=== PATIENT | male | born 1960 | race Caucasian/White ===

== ENCOUNTER 2019-10-16 18:13 | Emergency (ER) | payer BC, SELFPAY ==
--- NOTE | 2019-10-16 18:15 | ECG_ITS ---
Measurements Intervals [place] Rate: 102 P: 50 MT: 142 QRS: 56 QRSD: 100 T: 47 QT: 345 QTc: 449 SINUS TACHYCARDIA ABNORMAL RHYTHM ECG No previous ECG available for comparison Electronically Signed On 10-17-2019 12:58:39 CDT by Caryn Warner M.D. [email or web address]
[2019-10-16 18:26] VITALS: BP 153/100; PULSE 105; RESP 16; TEMP 36.7; O2SAT 94; BMI 34.6
--- NOTE | 2019-10-16 18:44 | ED_ITS ---
Entered by Sharon Griggs, acting as scribe for Erich Flood MD Oct 16, 2019 18:13 HPI - Chest Pain General: Chief Complaint: Chest Pain Stated Complaint: cp/sob Time Seen by Provider: 10/16/19 18:41 Source: patient and family Mode of arrival: ambulatory Limitations: no limitations History of Present Illness: HPI narrative: 59 yo male presents with chest pain and nausea. pt states this started 3 day ago. pt states he has been having sweating. pt has had shortness of breath. pt states he has had heart burn for the past few days. pt denies any other symptoms at this time. complaint: chest pain Onset (ago): day(s) ( 3 days) Timing of current episode: constant and still present Prior episodes: No Onset: during rest Pain location: substernal Pain radiation: none Severity: mild Quality: sharp Relieving factors: nothing Exacerbating factors: other (heart burn) Associated symptoms: Reports dyspnea and nausea; Deny fever(s) Treatment prior to arrival: none Review of Systems Const: Denies: fever, chills, body aches or change in appetite Eyes: Denies: blurry vision or eye discomfort ENMT: Denies: throat pain or dental pain Card: Reports: chest pain Resp: Reports: shortness of breath GI: Reports: nausea and heartburn/indigestion : Denies: painful urination Musc: Denies: neck pain or back pain Skin/Breast: Denies: rash Neuro: Denies: headache Psych: Denies: depression Noe/Lymph: Denies: easy bruising All/Imm: Denies: hives PFS ED PFSH: Social History (Updated 10/16/19 @ 17:13 by Sydney Gavin LPN) Smoking and tobacco status: former smoker Physical Exam Const: COMMON NORMALS: no apparent distress, oriented x3 and healthy appearing HENMT: COMMON NORMALS: normocephalic and head/scalp atraumatic HEAD & SCALP: normocephalic and atraumatic Eye: COMMON NORMALS: PERRL and EOMs intact bilaterally PUPIL: Yes PERRL Neck/C-Spine: COMMON NORMALS: full ROM and supple Resp: COMMON NORMALS: normal respiratory effort, no retractions, no use of accessory muscles and clear to auscultation bilaterally AUSCULTATION: clear to auscultation bilaterally Cardio: COMMON NORMALS: regular rate, regular rhythm and no murmurs RATE: regular rate RHYTHM: regular rhythm GI: COMMON NORMALS: normal to inspection, nondistended, normoactive bowel sounds, soft to palpation, non-tender and no masses PALPATION: Yes soft Extremity: COMMON NORMALS: normal to inspection and full ROM Neuro: COMMON NORMALS: oriented x3, moves all extremities and no focal motor deficits Psych: COMMON NORMALS: mental status grossly normal, thought process normal and cooperative THOUGHT PROCESS: normal thought process Skin: COMMON NORMALS: no rashes or lesions noted and no wounds GENERAL SKIN EXAM: no rashes or lesions noted Course Vital Signs: Vital signs: Vital Signs Temperature 98.2 F 10/16/19 19:44 Pulse Rate 96 10/16/19 19:44 Respiratory Rate 16 10/16/19 19:44 Blood Pressure 138/95 10/16/19 19:44 Pulse Oximetry 96 10/16/19 19:44 MDM - Chest Pain MDM Narrative: Medical decision making narrative: Patient presents here with chest pain that is atypical in nature. Patient's been pain-free here in initial and repeat troponin are normal and EKGs are normal as well. Patient's d-dimer is negative with no signs of pulmonary embolism. Patient is stable for discharge and is to return if worsening. Patient is to follow-up with primary care doctor. Lab Data: Labs: Lab Results 10/16/19 10/16/19 10/16/19 Range/Units 18:48 18:48 18:48 WBC 8.5 (4.0-10.0) 10^3/ uL RBC 5.38 H (4.1-5.3) 10^6/u L Hgb 15.2 (11.7-16.6) g/dL Hct 45.8 (42.0-52.0) % MCV 85.1 (80-94) fL MCH 28.3 (28.0-34.0) pg MCHC 33.2 (30.0-36.0) g/dL RDW 12.0 L (12.1-15.1) % Plt Count 309 (130-400) 10^3/c mm MPV 10.3 (7.4-10.4) fL Neut % (Auto) 66.6 % Lymph % (Auto) 23.8 % [place] % (Auto) 7.9 % Eos % (Auto) 0.9 % Baso % (Auto) 0.6 % Neut # (Auto) 5.7 (1.8-7.7) 10^3/u L Lymph # (Auto) 2.0 (0.8-4.8) 10^3/u L [place] # (Auto) 0.7 (0.2-0.9) 10^3/u L Eos # (Auto) 0.1 (0.0-0.8) 10^3/u L Baso # (Auto) 0.1 (0.0-0.1) 10^3/u L Nucleated RBC % (a uto) 0 % Nucleated RBCs # 0.0 /100WBC D-Dimer (0-0.59) ug/mIFE U Sodium 137 (136-145) mmol/L Potassium 4.4 (3.5-5.1) mmol/L Chloride 100 (98-107) mmol/L Carbon Dioxide 23 (22-29) mmol/L Anion Gap 18.4 (5-19) BUN 17 (6-20) mg/dL Creatinine 1.0 (0.7-1.2) mg/dL GFR Calculation 76.7 L (90-130) mL/min Glucose 272 H (65-115) mg/dL Calculated Osmolal ity 290 (285-295) mOsm/k g Calcium 10.2 (8.5-10.5) mg/dL Total Bilirubin 0.4 (0.15-1.2) mg/dL AST 19 (0-40) U/L ALT 42 H (0-41) U/L Alkaline Phosphata se 58 (40-130) IU/L Troponin T Baselin e 7 (0-15) ng/mL Troponin T 120 Min [place] (0-15) ng/mL Delta Troponin T (0-10) ABS# NT-Pro-B Natriuret Pep 9 (0-125) pg/mL Total Protein 7.2 (6.6-8.7) g/dL Albumin 4.4 (3.5-5.2) g/dL Globulin 2.8 (1.3-4.6) g/dL Lipase 27 (13-60) U/L 10/16/19 10/16/19 Range/Units 18:48 20:38 WBC (4.0-10.0) 10^3/ uL RBC (4.1-5.3) 10^6/u L Hgb (11.7-16.6) g/dL Hct (42.0-52.0) % MCV (80-94) fL MCH (28.0-34.0) pg MCHC (30.0-36.0) g/dL RDW (12.1-15.1) % Plt Count (130-400) 10^3/c mm MPV (7.4-10.4) fL Neut % (Auto) % Lymph % (Auto) % [place] % (Auto) % Eos % (Auto) % Baso % (Auto) % Neut # (Auto) (1.8-7.7) 10^3/u L Lymph # (Auto) (0.8-4.8) 10^3/u L [place] # (Auto) (0.2-0.9) 10^3/u L Eos # (Auto) (0.0-0.8) 10^3/u L Baso # (Auto) (0.0-0.1) 10^3/u L Nucleated RBC % (a uto) % Nucleated RBCs # /100WBC D-Dimer 0.22 (0-0.59) ug/mIFE U Sodium (136-145) mmol/L Potassium (3.5-5.1) mmol/L Chloride (98-107) mmol/L Carbon Dioxide (22-29) mmol/L Anion Gap (5-19) BUN (6-20) mg/dL Creatinine (0.7-1.2) mg/dL GFR Calculation (90-130) mL/min Glucose (65-115) mg/dL Calculated Osmolal ity (285-295) mOsm/k g Calcium (8.5-10.5) mg/dL Total Bilirubin (0.15-1.2) mg/dL AST (0-40) U/L ALT (0-41) U/L Alkaline Phosphata se (40-130) IU/L Troponin T Baselin e (0-15) ng/mL Troponin T 120 Min [place] 6.68 (0-15) ng/mL Delta Troponin T -0.32 L (0-10) ABS# NT-Pro-B Natriuret Pep (0-125) pg/mL Total Protein (6.6-8.7) g/dL Albumin (3.5-5.2) g/dL Globulin (1.3-4.6) g/dL Lipase (13-60) U/L Imaging Data^: CXR: Attestation: I personally reviewed and interpreted this imaging study as follows: My impression: no acute abnormality EKG Data^: EKG 1: Attestation: I personally reviewed and interpreted this EKG as follows: EKG interpretation date: 10/16/19 EKG interpretation time: 18:29 Interpretation: sinus tach hr [address] or t wave abnormalities qrs 88 qtc 380 EKG 2: Attestation: I personally reviewed and interpreted this EKG as follows: EKG interpretation date: 10/16/19 EKG interpretation time: 20:14 Interpretation: nsr hr [address] or t wave abnormalities qrs 88 qtc 399 Discharge Plan Discharge Patient Disposition: Home, Self-Care Clinical Impression: Chest pain Qualifiers: Chest pain type: other chest pain Qualified Code(s): R07.89 - Other chest pain Condition: Stable Prescriptions: No Action metformin 1,000 mg tablet 1,000 mg PO BID RF: 0 aspirin [Adult Aspirin Regimen] 81 mg tablet,delayed release (DR/EC) 81 mg PO DAILY RF: 0 Discharge Orders: Discharge Order (Routine); Ordered 10/16/19 Ordered By: Erich Flood Referrals: Jeannine Deleon DO [Primary Care Provider] - 4-7 days Discharge Diet: Advance as tolerated Discharge Activity: Resume usual activity Patient Instructions: Chest Pain (ED) Coding Level of Care Code ED Global Engineering Manager for Chg Fwd Exam Comprehensive The documentation recorded by the [place] glass Bridget Annette, accurately reflects the service I personally performed and the decisions made by Remigio zapata Korby, MD Oct 16, 2019 18:13
[2019-10-16 18:52] VITALS: O2SAT 93
[2019-10-16] MEDS: aspirin 81 mg Chew Tablet 324 MG PO (18:56)
[2019-10-16 19:00] LABS: Basophils # 0.1 10^3/uL (0.0-0.1); Basophils % 0.6 %; Eosinophils # 0.1 10^3/uL (0.0-0.8); Eosinophils % 0.9 %; Hematocrit 45.8 % (42.0-52.0); Hemoglobin 15.2 g/dL (11.7-16.6); Lymphocytes % 23.8 %; Mean Corpuscular HGB Conc 33.2 g/dL (30.0-36.0); Mean Corpuscular Hemoglobin 28.3 pg (28.0-34.0); Mean Corpuscular Volume 85.1 fL (80-94); Mean Platelet Volume 10.3 fL (7.4-10.4); Monocytes # 0.7 10^3/uL (0.2-0.9); Monocytes % 7.9 %; Neutrophils # 5.7 10^3/uL (1.8-7.7); Neutrophils % 66.6 %; Nucleated Red Blood Cells % 0 %; Platelet Count 309 10^3/cmm (130-400); Red Blood Count 5.38 10^6/uL (4.1-5.3); White Blood Count 8.5 10^3/uL (4.0-10.0)
--- NOTE | 2019-10-16 19:00 | XR_ITS ---
WS: [id number] CHEST XRAY TECHNIQUE: Portable chest. CLINICAL INFORMATION: cp COMPARISON: October 01, 2017 FINDINGS: Heart: Normal cardiac silhouette. Lungs: Lungs are clear. No consolidation or pleural effusion. Bones: Normal visualized bony structures. XR/XR chest 1V portable [id number] IMPRESSION: No acute chest findings
[2019-10-16 19:17] LABS: Troponin(5th) Baseline 7 ng/mL (0-15)
[2019-10-16 19:21] LABS: D Dimer 0.22 ug/mIFEU (0-0.59)
[2019-10-16 19:26] LABS: Alanine Aminotransferase 42 U/L (0-41); Albumin Level 4.4 g/dL (3.5-5.2); Alkaline Phosphatase 58 IU/L (40-130); Anion Gap 18.4 (5-19); Aspartate Amino Transferase 19 U/L (0-40); Blood Urea Nitrogen 17 mg/dL (6-20); Calcium 10.2 mg/dL (8.5-10.5); Carbon Dioxide 23 mmol/L (22-29); Chloride 100 mmol/L (98-107); Globulin 2.8 g/dL (1.3-4.6); Glomerular Filtration Rate 76.7 mL/min (90-130); Glucose 272 mg/dL (65-115); Lipase 27 U/L (13-60); NT Pro B Type Natriuretic Pept 9 pg/mL (0-125); Osmolality Calculated 290 mOsm/kg (285-295); Potassium 4.4 mmol/L (3.5-5.1); Sodium 137 mmol/L (136-145); Total Bilirubin 0.4 mg/dL (0.15-1.2); Total Protein 7.2 g/dL (6.6-8.7)
[2019-10-16 19:44] VITALS: BP 138/95; PULSE 96; RESP 16; TEMP 36.8; O2SAT 96
--- NOTE | 2019-10-16 20:15 | ECG_ITS ---
Measurements Intervals [place] Rate: 93 P: 27 MD: 157 QRS: 19 QRSD: 88 T: 15 QT: 349 QTc: 434 SINUS RHYTHM No previous ECG available for comparison Electronically Signed On 10-17-2019 13:06:14 CDT by Caryn Warner M.D. [email or web address]
[2019-10-16 21:00] LABS: Troponin 5 2HR 6.68 ng/mL (0-15)
[2019-10-16 21:19] LABS: Troponin 5 2HR Delta -0.32 ABS# (0-10)
[2019-10-16 21:24] VITALS: BP 149/97; PULSE 90; RESP 18; TEMP 36.8; O2SAT 96
== END 2019-10-16 21:24 | disposition home or self-care (01) ==
PROVIDERS: Emergency Medicine; Emergency Provider Emergency Medicine; Family Provider Family Medicine; PCP Family Medicine
DX: R07.9 Chest pain, unspecified (principal); Z87.891 Personal history of nicotine dependence
CPT/HCPCS: 12345; 36415; 71045; 80053; 83690; 83880; 84484; 85025; 85378; 93005; 99283; 99284

== ENCOUNTER → 2021-04-04 10:08 | Outpatient (BNVA) | payer BC, SELFPAY | PROVIDERS: Family Provider Family Medicine; Visit Provider Family Medicine | DX: N50.89 Other specified disorders of the male genital organs (principal); N50.811 Right testicular pain; N52.9 Male erectile dysfunction, unspecified; I15.2 Hypertension secondary to endocrine disorders; E11.59 Type 2 diabetes mellitus with other circulatory complications; M17.0 Bilateral primary osteoarthritis of knee; Z13.220 Encounter for screening for lipoid disorders; Z13.6 Encounter for screening for cardiovascular disorders | CPT/HCPCS: 80053; 80061; 83036; 84402; 84443; 85025; G0103 ==

== ENCOUNTER → 2021-04-13 16:23 | Outpatient (BNVA) | payer BC, SELFPAY | PROVIDERS: Family Provider Family Medicine; Visit Provider Family Medicine | DX: N50.811 Right testicular pain (principal); N50.89 Other specified disorders of the male genital organs | CPT/HCPCS: 84402 ==

== ENCOUNTER → 2021-05-04 13:54 | Outpatient (BNVA) | payer BC, SELFPAY | PROVIDERS: Family Provider Family Medicine; PCP Family Medicine; Visit Provider Nurse Practitioner Family | DX: Z20.822 Contact with and (suspected) exposure to COVID-19 (principal) | CPT/HCPCS: 87635 ==